=== PATIENT | female | born 1965 | race Two or more races ===

== ENCOUNTER 2018-12-30 06:17 | Day surgery (SDC) | payer OTHER ==
[~2018-12-30 06:17] MED LIST: LOSARTAN-HCTZ1 EACH PO
== END 2018-12-30 11:10 | disposition home or self-care (01) ==
LOC: CIR.AMB 06:17
DX: M19.041 Primary osteoarthritis, right hand (principal)

== ENCOUNTER 2019-08-18 07:00 | Day surgery (SDC) | payer OTHER | END 2019-08-18 13:01 | disposition home or self-care (01) | LOC: CIR.AMB 07:00 → ADM 07:30 → CIR.AMB 13:01 | DX: M19.041 Primary osteoarthritis, right hand (principal) ==